=== PATIENT | male | born 1985 | race Caucasian/White ===

== ENCOUNTER 2020-10-28 20:07 | Emergency (ER) | payer OTHER, SELFPAY ==
[2020-10-28 20:30] VITALS: BP 126/67; PULSE 73; RESP 20; TEMP 36.7; O2SAT 97
--- NOTE | 2020-10-28 20:41 | ED.GENADULT ---
HPI - General Adult General Chief complaint: Dizziness Stated complaint: dizzy, lightheaded, nauseous Source: patient Mode of arrival: ambulatory Limitations: no limitations History of Present Illness HPI narrative: Martha is a previously healthy 35M that presented to the ED with vertigo. It started when he stood up 4 hours ago. Since then if he moves to fast or looks the wrong way he gets severe dysequilibrium and feels like he is going to go down. No CP, SOB, hearing changes, vision changes, nausea or vomiting reported. Related Data Allergies Allergy/AdvReac Type Severity Reaction Status Date / Time No Known Allergies Allergy Verified 10/28/20 20:37 Review of Systems Constitutional: Constitutional: Reports no additional constitutional complaints Eyes: Eyes: Reports no additional eye complaints ENT: Reports system reviewed and no additional complaints, except as documented Cardiovascular: Cardiovascular: Reports no additional cardiovascular complaints Respiratory: Respiratory: Reports no additional respiratory complaints Gastrointestinal: Gastrointestinal: Reports no additional gastrointestinal complaints Genitourinary: Genitourinary: Reports no additional male genitourinary complaints Musculoskeletal: Musculoskeletal: Reports no additional musculoskeletal complaints Integumentary/Breasts: Skin/Breast: Reports system reviewed and no additional complaints, except as docu Neurologic: Reports as per HPI Psychiatric: Psychiatric: Reports no additional psychiatric complaints Exam Const: General: no acute distress and alert Orientation/consciousness: patient oriented x3 Limitations: No altered mental status HENMT: Head: normal to inspection Other: atraumatic. Ear canals and TM wnl bilateraly Eyes: Conjunctivae: conjunctivae normal Pupils: Equal, round and reactive pupils present Neck: Neck: normal visual inspection Chest: Chest palpation & inspection: normal inspection of the chest Resp: Effort & Inspection: normal respiratory effort, not labored and not tachypneic Cardio: Rate: regular rate Back/Spine/Pelvis: Back: no CVA tenderness Skin: General skin exam: normal color Rashes: no rashes Neuro: General: patient oriented x3, moves all extremities, no focal motor deficits and CN's II-XI intact bilaterally Speech: normal speech Other: Several beats of right sided nystagmus. No left sided or vertical nystagmus. Negative head impulse and test of skew. Normal finger to nose. Normal rapid alternating movements. +Mesa Hallpike on the right Extrem: General: normal to inspection Psych: Mental Status: mental status grossly normal Course Course Emergency Course: Given +HINTS exam and +Devora hallpike it is likely BPPV or other peripheral cause Vital Signs Vital signs: Vital Signs Temperature 98.0 F 10/28/20 20:30 Pulse Rate 73 10/28/20 20:30 Respiratory Rate 20 10/28/20 20:30 Blood Pressure 126/67 10/28/20 20:30 Pulse Oximetry 97 10/28/20 20:30 Temperature 98.0 F 10/28/20 20:30 Pulse Rate 72 10/28/20 20:53 Respiratory Rate 20 10/28/20 20:53 Blood Pressure 126/67 10/28/20 20:30 Pulse Oximetry 98 10/28/20 20:53 Medical Decision Making Vital Signs Vital Signs: Vital Signs Temperature 98.0 F 10/28/20 20:30 Pulse Rate 73 10/28/20 20:30 Respiratory Rate 20 10/28/20 20:30 Blood Pressure 126/67 10/28/20 20:30 Pulse Oximetry 97 10/28/20 20:30 Temperature 98.0 F 10/28/20 20:30 Pulse Rate 72 10/28/20 20:53 Respiratory Rate 20 10/28/20 20:53 Blood Pressure 126/67 10/28/20 20:30 Pulse Oximetry 98 10/28/20 20:53 Discharge Plan Discharge Clinical Impression: Benign paroxysmal positional vertigo Patient Disposition: Home, Self-Care Condition: Stable Instructions: Benign Paroxysmal Positional Vertigo (ED) Additional Instructions: Please return for any new, concerning, or worsening symptoms. Prescriptions: New
[2020-10-28] MEDS: MECLIZINE HCL 25 MG TABLET PO (20:46)
[2020-10-28 20:53] VITALS: PULSE 72; RESP 20; O2SAT 98
== END 2020-10-28 20:57 | disposition home or self-care (01) ==
PROVIDERS: Emergency Provider Family Medicine; PCP Physician Assistant
DX: H81.10 Benign paroxysmal vertigo, unspecified ear (principal)
CPT/HCPCS: 99283; A9270

== ENCOUNTER 2022-10-23 01:00 | Emergency (ER) | payer SELFPAY ==
--- NOTE | ~2022-10-23 | XR_ITS ---
XR hip RT min 3V w AP pelvis DATE: 10/23/2022 01:42 INDICATION: Right hip pain. No known injury. TECHNIQUE: AP pelvis. AP, lateral, crosstable lateral views of right hip COMPARISON: None FINDINGS: The pubic symphysis and sacroiliac joints are intact. No pelvic fracture or bone destructio n is detected. Moderate right and mild left hip osteoarthritis including degenerative spurring, right greater than l eft and joint space narrowing, greater on the right. No fracture or dislocation, avascular necrosis or bone destruction of the right hip. IMPRESSION: Bilateral hip osteoarthritic arthritis, right greater than left Reviewed, dictated and finalized at location A.
[2022-10-23 01:09] VITALS: BP 126/70; PULSE 71; RESP 18; TEMP 36.8; O2SAT 100
--- NOTE | 2022-10-23 01:09 | ED.LOWEXIN ---
HPI - Extremity Injury (Lower) General Chief Complaint: Extremity Injury, Lower Stated Complaint: right hip/whole leg pain Time Seen by Provider: 10/23/22 01:08 Source: patient and family Mode of arrival: ambulatory Limitations: no limitations History of Present Illness HPI Narrative: this is a 37-year-old male presents with right upper leg pain in the groin and hamstring area with some pain with movement and palpation in the right groin and right hamstring after he jumped into a pool earlier this afternoon and having difficulty with walking and weight-bearing. Otherwise has good range of motion in his in his hip with no lateral tenderness of his right hip although there is medial in the right groin and tenderness in the hamstring area of the right leg has a good brisk pedal pulse with no numbness or tingling no back pain. MD complaint: hip injury Onset (ago): hour(s) Injury: Right: hip ( right groin and hamstring tenderness with palpation and movement) Severity: moderate Severity scale (1-10): 8 Exacerbating factors: weight bearing and movement Context: jumping Related Data Allergies Allergy/AdvReac Type Severity Reaction Status Date / Time No Known Allergies Allergy Verified 10/28/20 20:37 Review of Systems Review of Systems: All systems reviewed & are unremarkable except as noted in HPI and below PMFSH Past Medical History Medical History Patient denies medical problems Exam Const: General: healthy appearing Nutritional Appearance: well nourished Orientation/consciousness: patient oriented x3 Limitations: no limitations Neck: Neck: normal visual inspection Chest: Chest palpation & inspection: normal inspection of the chest Resp: Effort & Inspection: normal respiratory effort Auscultation: clear to auscultation bilaterally Cardio: Rate: regular rate Rhythm: regular rhythm GI: GI Palp: Yes Soft to palpation Auscultation: normal bowel sounds Urinary Catheter: Urinary Catheter: patent and draining Back/Spine/Pelvis: Back: no CVA tenderness Skin: General skin exam: normal color Rashes: no rashes Neuro: General: patient oriented x3, moves all extremities, no meningeal signs and no focal motor deficits Extrem: Other: tender right growing and right hamstring area with palpation with a tenderness with movement of his right leg there is no paresthesias has a brisk pedal pulse on the right. No back pain elicited with palpation. Psych: Mental Status: mental status grossly normal Affect: normal affect Course Course Emergency Course: X-ray performed of the right hip and pelvis Reviewed with no fractures or dislocations, will administer 60mg IM Toradol. Discharge Plan Discharge Clinical Impression: Strain of right groin Patient Disposition: Home, Self-Care Condition: Stable Instructions: Antibiotic Form, Groin Strain (ED) Additional Instructions: advised to rest keep leg elevated while resting can apply ice to affected area and take medicine as prescribed and follow up with primary within a week for further evaluation. Prescriptions: New tramadol 50 mg tablet 50 mg PO Q6H PRN (Reason: pain) Qty: 14 0RF No Action meclizine 25 mg tablet 25 mg PO TID PRN (Reason: dizziness) Qty: 14 0RF Follow-up/Referrals: Pita Dias, [facility] [Primary Care Provider] - Time of Disposition: 01:47
[2022-10-23] MEDS: KETOROLAC (*BKC) 60 MG/2 ML VIAL IM (01:22)
[2022-10-23 01:49] VITALS: BP 126/70; PULSE 71; RESP 22; TEMP 36.8; O2SAT 100
== END 2022-10-23 01:52 | disposition home or self-care (01) ==
PROVIDERS: Emergency Provider Emergency Medicine
DX: S76.211A Strain of adductor muscle, fascia and tendon of right thigh, initial encounter (principal); X58.XXXA Exposure to other specified factors, initial encounter
CPT/HCPCS: 73502; 96372; 99283; J1885

== ENCOUNTER 2022-11-22 07:14 | Emergency (ER) | payer SELFPAY ==
--- NOTE | ~2022-11-22 | US_ITS ---
EXAMINATION: US scrotum doppler DATE: 11/22/2022 08:02 INDICATION: Left scrotal pain TECHNIQUE: Testicular sonogram utilizing grayscale and Doppler COMPARISON: None. FINDINGS: The right testis measures 3.8 x 2.2 x 2.3 cm. The left testis measures 2.8 x 2.6 x 2.0 cm. Symmetric normal grayscale appearance to both testes. There is normal vascular flow to both testes. The right e pididymis is normal with normal vascular flow. The left epididymis is normal with normal vascular bria w. There is no varicocele or hydrocele. IMPRESSION: 1. Normal testicular ultrasound. Reviewed, dictated and finalized at location A.
[2022-11-22 07:14] VITALS: BP 115/76; PULSE 82; RESP 18; TEMP 36.6; O2SAT 98
--- NOTE | 2022-11-22 07:24 | ED.MALEGU ---
HPI - Male Genitourinary General Chief complaint: Urogenital-Male Stated complaint: testicular pain Time Seen by Provider: 11/22/22 07:24 Source: patient Mode of arrival: ambulatory Limitations: no limitations History of Present Illness HPI Narrative: 37-year-old male presents to the ER with a one-week history -- dysuria / hematuria for which she received Cipro with improvement of his symptoms. -- Left testicular pain off and on for the past 1 week. The patient has not had any fever or chills. The patient has not had any new sexual partners in the recent past. No prior history of epididymo-orchitis. MD Complaint: testicle pain Onset (ago): week(s) ( Started 1 week ago) Location: penis and left testicle Severity: moderate Quality: aching Relieving factors: none Exacerbating factors: movement Associated symptoms: Reports denies other symptoms, blood in urine and dysuria Related Data Sexually active: Yes Home Medications Medication Instructions Recorded Confirmed No Home Medications 11/22/22 11/22/22 Allergies Allergy/AdvReac Type Severity Reaction Status Date / Time No Known Allergies Allergy Verified 11/22/22 07:35 Review of Systems Review of Systems: All systems reviewed & are unremarkable except as noted in HPI and below Constitutional: Constitutional: Reports as per HPI and Reports no additional constitutional complaints Eyes: Eyes: Reports as per HPI and Reports no additional eye complaints ENT: Reports system reviewed and no additional complaints, except as documented and Reports as per HPI Cardiovascular: Cardiovascular: Reports as per HPI and Reports no additional cardiovascular complaints Respiratory: Respiratory: Reports as per HPI and Reports no additional respiratory complaints Gastrointestinal: Gastrointestinal: Reports as per HPI and Reports no additional gastrointestinal complaints Genitourinary: Genitourinary: Reports no additional male genitourinary complaints, Reports as per HPI and Reports testicular pain Musculoskeletal: Musculoskeletal: Reports no additional musculoskeletal complaints Integumentary/Breasts: Skin/Breast: Reports system reviewed and no additional complaints, except as docu and Reports as per HPI Neurologic: Reports system reviewed and no additional complaints, except as documented and Reports as per HPI Psychiatric: Psychiatric: Reports no additional psychiatric complaints and Reports as per HPI Endocrine: Endocrine: Reports no additional endocrine complaints and Reports as per HPI Hematologic/Lymphatic: Hematologic/Lymphatic: Reports no additional hematologic/lymphatic complaints and Reports as per HPI Allergic/Immunologic: Allergic/Immunologic: Reports no additional allergic/immunologic complaints and Reports as per [facility] Past Medical History Medical History Patient denies medical problems Exam Const: General: healthy appearing and no acute distress Limitations: no limitations HENMT: Head: normal to inspection Ears: TM's normal bilaterally Face/Nose/Sinus: Normal external nose present Face and sinus: normal facial exam Mouth: Yes Normal oral and palatal mucosa present Teeth and gingiva: abnormal tooth and associated gingiva Eyes: Conjunctivae: conjunctivae normal Pupils: Equal, round and reactive pupils present EOM: EOMs intact bilaterally Direct Ophthalmoscopy: no photophobia Neck: Neck: normal visual inspection, no lymphadenopathy and no meningeal signs Chest: Chest palpation & inspection: normal inspection of the chest Resp: Effort & Inspection: normal respiratory effort Auscultation: rhonchi Cardio: Rate: regular rate Rhythm: regular rhythm Heart sounds: Murmur heart sound present GI: GI Palp: Yes Soft to palpation Auscultation: normal bowel sounds Rectal Exam: normal sphincter tone : General: Yes no CVA tenderness Male General Exam: Yes normal external exam Penis
[2022-11-22 08:13] LABS: Appearance Urine Clear (Clear); Bilirubin Urine Negative (Negative); Blood Urine Trace-Intact (Negative); Color Urine Light Yellow (Yellow); Glucose Urine UA Negative (Negative); Ketones Urine Negative (Negative); Leukocyte Esterase Ur Negative LEU/UL (Negative); Nitrate Urine Negative (Negative); Protein Urine Negative (Negative); Specific Grav Ur 1.015 (1.010-1.020); Urobilinogen Urine 0.2 mg/dL (0.2-1.0)
[2022-11-22 08:17] LABS: Add Urine Microscopic? YES; Bacteria Urine None seen /hpf; RBC Urine None seen /hpf (0-2); WBC Urine None seen /hpf (0-3)
--- NOTE | 2022-11-22 09:15 | PC.NURSE ---
PT CONTINUES TO WALK AROUND EXAM ROOM, REPORTS SITTING HURTS. PT HAS BEEN UPDATED ON RESULTS. PT IS AWAITING ERP DECISION AT THIS TIME. WILL CONTINUE TO MONITOR.
[2022-11-22 09:43] VITALS: BP 128/81; PULSE 68; RESP 18; TEMP 37.2; O2SAT 100
[2022-11-24 11:38] LABS: Chlamydia trachomatis NOT DETECTED (NOT DETECTE); Neisseria gonorrhoeae PCR NOT DETECTED (NOT DETECTE)
== END 2022-11-22 09:45 | disposition home or self-care (01) ==
PROVIDERS: Emergency Provider Internal Medicine Critical Care Medicine; PCP Physician Assistant
DX: N50.811 Right testicular pain (principal)
CPT/HCPCS: 76870; 81001; 87491; 87591; 93976; 99284